=== PATIENT | male | born 1965 | race African-American/Black ===

== ENCOUNTER 2019-03-05 17:26 | Emergency (ER) | payer OTHER ==
[~2019-03-05] VITALS: Ht 172.7 cm; Wt 81.7 kg
[~2019-03-05 17:26] MED LIST: IBUPROFEN 600600 M1; IBUPROFEN 600600 M1 PO; NAPROSYN500 MG PO; NORCO 5-325 TA1 EACH PO; ONDANSETRON HCL4 M2 PO; TRAMADOL 50 MG50 MG PO; VALIUM5 MG PO
[2019-03-05] MEDS ORDERED: NOHOMEMEDICATIONS (17:56)
[2019-03-05] MEDS ORDERED: SENNA-DOCUSATE1 EAC1 PO (19:19)
[2019-03-05] MEDS ORDERED: NAPROSYN500 MG PO (19:19)
[2019-03-05] MEDS ORDERED: NORCO 5-325 TA1 EAC1 PO (19:19)
[2019-03-05] MEDS ORDERED: NORFLEX100 MG PO (19:19)
[2019-03-05 19:40] VITALS: BP 128/83
== END 2019-03-05 19:40 | disposition home or self-care (01) ==
LOC: ER 17:26
DX: M54.5 Low back pain (principal); M54.2 Cervicalgia; V89.2XXA Person injured in unspecified motor-vehicle accident, traffic, initial encounter; Y92.89 Other specified places as the place of occurrence of the external cause; Y93.89 Activity, other specified; Y99.8 Other external cause status

== ENCOUNTER 2019-03-11 10:33 | Emergency (ER) | payer OTHER ==
[~2019-03-11] VITALS: Ht 172.7 cm; Wt 83.9 kg
[2019-03-11 10:33] VITALS: BP 123/73
[~2019-03-11 10:33] MED LIST changes: +NOHOMEMEDICATIONS; +NORCO 5-325 TA1 EAC1 PO; +NORFLEX100 MG PO; +SENNA-DOCUSATE1 EAC1 PO
[2019-03-11] MEDS ORDERED: PREDNISONE 20 M20 MG PO (12:28)
[2019-03-11] MEDS ORDERED: NORFLEX100 MG PO (12:28)
--- NOTE | 2019-03-14 12:57 | EKG ---
[place] [address] [place] [address] ELECTROCARDIOGRAM REPORT Name: YESENIAMISTY Room #: DEP ANDI Gaspar#: [id number] Admission: 03/11/19 Attend Phys: Discharge: 03/11/19 Date of : 63 Report #: [id number] THIS REPORT FOR: //name// [facility] ED Test Date: 2019-03-11 Test Time: 11:37:53 Pat Name: MISTY PATTERSON Department: Room: Gender: Noc Analyst: lorna : 1965 Requested By: Tish Tyson Order Number: [id number] MD: Gutierrez Chávez Measurements Intervals [place] Rate: 81 P: 49 IL: 180 QRS: 20 QRSD: 81 T: 39 QT: 370 QTc: 430 Interpretive Statements Sinus rhythm Probable left atrial enlargement Probable anteroseptal infarct, old No previous ECG available for comparison Electronically Signed On 03-14-2019 12:57:07 [employer] PROJECT COORDINATOR by Gutierrez Chávez [email or web address] <ELECTRONICALLY SIGNED> By: Gutierrez Chávez MD 03/14/19 1257 [id number] 1137 Gutierrez Chávez MD /TRAVIS
== END 2019-03-11 12:49 | disposition home or self-care (01) ==
LOC: ER 10:33
DX: M54.12 Radiculopathy, cervical region (principal); R07.89 Other chest pain

== ENCOUNTER 2020-11-16 06:29 | Emergency (ER) | payer BC ==
[~2020-11-16] VITALS: Ht 172.7 cm; Wt 86.2 kg
[~2020-11-16 06:29] MED LIST changes: +PREDNISONE 20 M20 MG PO
[2020-11-16] MEDS ORDERED: VALIUM2 MG PO (09:13)
[2020-11-16] MEDS ORDERED: IBUPROFEN 800800 MG PO (09:13)
[2020-11-16 09:16] VITALS: BP 167/91
== END 2020-11-16 09:16 | disposition home or self-care (01) ==
LOC: ER 06:29
DX: M54.41 Lumbago with sciatica, right side (principal); M25.551 Pain in right hip

== ENCOUNTER 2021-02-15 12:45 | Emergency (ER) | payer OTHER ==
[~2021-02-15] VITALS: Ht 172.7 cm; Wt 86.2 kg
[~2021-02-15 12:45] MED LIST changes: +IBUPROFEN 800800 MG PO; +VALIUM2 MG PO
[2021-02-15 13:04] VITALS: BP 135/88
== END 2021-02-15 15:05 | disposition home or self-care (01) ==
LOC: ER 12:45
PROVIDERS: Emergency Medicine
DX: U07.1 COVID-19 (principal); Z79.1 Long term (current) use of non-steroidal anti-inflammatories (NSAID); Z79.891 Long term (current) use of opiate analgesic; Z79.899 Other long term (current) drug therapy